=== PATIENT | male | born 1960 | race Hispanic/Latino ===

== ENCOUNTER → 2018-01-23 | Emergency (ER) | payer MEDICAID ==
[~2018-01-23] VITALS: Ht 172.7 cm; Wt 91.6 kg
[~2018-01-23] MED LIST: AUGMENTIN250 MG/5 M PO; LANTUS100 UNITS/ SUB-Q
== END ==
LOC: ED 06:55
DX: J36 Peritonsillar abscess (principal); E11.9 Type 2 diabetes mellitus without complications
CPT/HCPCS: 80053; 81001; 85025; 96361; 96372; 96374; 99283; J0696; J1815; J7030

== ENCOUNTER 2023-07-11 06:15 | Day surgery (SDC) | payer BC ==
[2023-07-09 10:19] VITALS: BP 129/91
[~2023-07-11] VITALS: Ht 172.7 cm; Wt 89.5 kg
[~2023-07-11 06:15] MED LIST changes: +BRAIN MIGHT-DH1 EACH PO; +COZAAR25 MG PO; +LIPITOR40 MG PO; +MULTI COMPLETE1 EACH PO; +NAPROXEN250 MG PO; +OSTERA TABLET1 EACH PO; +OZEMPIC0.25 MG/02 SQ
[2023-07-11 06:23] VITALS: BP 135/76
--- NOTE | 2023-07-11 07:22 | NUR ---
DS ROUNDS. PT NOT IN ROOM. UNABLE TO VISIT. PROVIDED PRAYER.
--- NOTE | 2023-07-11 08:04 | NUR ---
07/11/23 0804 Princess Smart PT TO PACU SLEEPING O2 VIA MASK FOGGING NOTED IN MASK
[2023-07-11 08:26] VITALS: BP 140/84
--- NOTE | 2023-07-11 08:54 | OR ---
[facility] [address], [place] [address] Signed DATE OF OPERATION: 07/11/2023 SURGEON: Dimple Fraser MD PREOPERATIVE DIAGNOSES: 1. Screening. 2. Son with Crohn disease plus or minus colonic polyps. 3. Negative colonoscopy in 2008 at age 48 per patient. POSTOPERATIVE DIAGNOSES: 1. 4 mm polyp at 8 cm in rectum. 2. 7 mm pedunculated polyp at 25 cm in the sigmoid colon. 3. Minimal left-sided diverticulosis. 4. Moderate internal hemorrhoids. PROCEDURES: Colonoscopy, snare polypectomy and hot biopsy. ESTIMATED BLOOD LOSS: None. INDICATIONS: Apple is a 62-year-old gentleman, asked to see me for a followup colonoscopy. He said about age 48 he underwent a negative colonoscopy in 2008 back at the [facility]. Of course, those paper charts are no longer available. He has no family history of colon cancer or polyps. He said his son has Crohn disease. He thinks maybe his son had colonic polyps removed. Apple has no lower GI complaints. In the office, I gave him a pamphlet on colonoscopy. We had reviewed the nature of the test along with the risks including, but not limited to gas bloating, crampy abdominal pain, bleeding, perforation requiring surgery, and missed diagnosis. We also reviewed the written instructions for the bowel prep line by line. Interestingly, he ate clear up to 11 a.m. and then did not purchase his laxatives until 5 p.m. Today, he had some thick particulate stool matter that could not completely be suctioned out. In the future he might consider into more bowel prep and using his liquids all day as instructed. Also, he uses daily marijuana and alcohol along with his diabetes. He also has a full round face and heavy neck as well. Consequently, we asked for monitored anesthesia care with propofol infusion. That worked out well. We did need to use some extra propofol. He had expressed understanding and wished to proceed. PROCEDURE IN DETAIL: Electronically Signed By: DIMPLE FRASER MD 07/11/23 0854 PATIENT NAME: APPLE BOOKER OPERATIVE REPORT DATE OF : 56 REPORT #: [id number] PHYSICIAN: DIMPLE FRASER MD PCP: AWILDA ESTEBAN MD REPORT IS CONFIDENTIAL AND NOT TO BE RELEASED WITHOUT AUTHORIZATION [facility] [address], [place] [address] Signed Apple was taken into our endoscopy suite and placed in the left lateral decubitus position. He was given monitored anesthesia care with propofol infusion per our nurse ballet soloist. A digital rectal exam was performed. He had good sphincter tone. There were no external hemorrhoids to any significant degree. There were no masses. The adult colonoscope was introduced, advanced all the way around into the cecum under direct visualization of camera without difficulty. Unfortunately, he had multiple areas of thick particulate stool matter I could not suction through the scope. He will need to do a double bowel prep in the future. I saw just one moderate sized diverticula in the left colon. He may have more, I just probably could not see them because of the prep. We used a hot biopsy forceps to remove the small polyp in the rectum. We used the snare to remove the polyp at 25 cm. That was captured through our scope and into our trap. Once in the rectum, the scope was retroflexed. He does have moderate internal hemorrhoid columns. After this, the gas was suctioned out. The colonoscope removed. Apple tolerated the procedure quite well. RECOMMENDATIONS: I will see Apple back in my office in 7 to 14 days to review his results. He needs to follow the prep instructions in the future or maybe even use a double bowel prep in the future. He will always need monitored anesthesia care. He might consider repeating the colonoscopy in told 24 months given the findings of polyps and the poor bowel prep. Dimple Fraser MD ALB/MODL /[id number] cc: MD Awilda Mitchell MD Copies: DIMPLE FRASER MD, ROBERT D DMD ~ Electronically Signed By: DIMPLE FRASER MD 07/11/23 0854 PATIENT NAME: APPLE BOOKER OPERATIVE REPORT DATE OF : 56 REPORT #: [id number] PHYSICIAN: DIMPLE FRASER MD PCP: AWILDA ESTEBAN MD REPORT IS CONFIDENTIAL AND NOT TO BE RELEASED WITHOUT AUTHORIZATION
--- NOTE | 2023-07-12 15:52 | PATH ---
[facility] [address] [facility] [place], [place] [address] Signed SPECIMEN(S): A COLON POLYP, 8 CM SPECIMEN(S): B SIGMOID POLYP, 25 CM SPECIMEN SOURCE: A. COLON POLYP, 8 CM B. SIGMOID POLYP, 25 CM CLINICAL HISTORY: Screening colonoscopy FINAL PATHOLOGIC DIAGNOSIS: A. Colon polyp, 8 cm: - Tubular adenoma (1 fragment). B. Sigmoid polyp at 25 cm: - Tubular adenoma. JVR:seth MICROSCOPIC EXAMINATION: Histologic sections of all submitted blocks are examined by light microscopy. These findings, together with the gross examination, support the pathologic diagnosis. GROSS DESCRIPTION: A. The specimen, labeled and designated "Alon, colon polyp 8 cm," is received in formalin and consists of one graf soft tissue fragment, 0.2 cm. Entirely submitted in (A1). B. The specimen, labeled and designated "Alon, sigmoid polyp 25 cm," is received in formalin and consists of a polyp a pink-graf soft tissue (0.8 x 0.6 x 0.4 cm). The resection margin is inked blue, and the tissue is quadrisected to reveal pink-graf soft cut surfaces). The specimen is submitted entirely in cassette (B1). VB (under the direct supervision of a pathologist) The Gross Description was prepared using a voice recognition system. The report was reviewed for accuracy; however, sound-alike word errors, addition and/or deletions may occur. If there is any question about this report, please contact Client Services. ADDITIONAL NOTES: Immunohistochemical and/or in situ hybridization studies if performed in this case included appropriate positive controls that reacted as expected. This test was developed and its performance PATIENT NAME: APPLE BOOKER PATHOLOGY DATE OF : 56 REPORT #: [id number] PHYSICIAN: BROCK SINGH PCP: AWILDA ESTEBAN MD REPORT IS CONFIDENTIAL AND NOT TO BE RELEASED WITHOUT AUTHORIZATION [facility] [address] [place], [place] [address] Signed characteristics determined by [facility]. It has not been cleared or approved by the U.S. Food and Drug Administration. The FDA has determined that such clearance or approval is not necessary. This test is used for clinical purposes. It should not be regarded as investigational or for research. [facility] is certified under the Clinical Laboratory Improvement Amendments of 1988 (CLIA) as qualified to perform high complexity clinical laboratory testing. PERFORMING LABORATORY: Technical component was performed by [facility], [address] [place] [id number] (CLIA# [id number]). Professional interpretation was performed by [facility], [address] [place] [id number] (CLIA#: [id number]). Diagnostician: Kirill Ballesteros MD Pathologist Electronically Signed 07/12/2023 Copies: ~ PATIENT NAME: APPLE BOOKER PATHOLOGY DATE OF : 56 REPORT #: [id number] PHYSICIAN: BROCK SINGH PCP: AWILDA ESTEBAN MD REPORT IS CONFIDENTIAL AND NOT TO BE RELEASED WITHOUT AUTHORIZATION
== END 2023-07-11 08:45 | disposition home or self-care (01) ==
LOC: DS 06:15 → OPS 06:15 → DS 07:30 → OPS 08:45
PROVIDERS: ATTEND Colon & Rectal Surgery
PROC: 0DBE8ZZ Excision of Large Intestine, Via Natural or Artificial Opening Endoscopic (ICD-10-PCS; 2023-07-11)
PROC: 0DBP8ZZ Excision of Rectum, Via Natural or Artificial Opening Endoscopic (ICD-10-PCS; principal; 2023-07-11 07:30)
DX: Z12.11 Encounter for screening for malignant neoplasm of colon (principal); D12.5 Benign neoplasm of sigmoid colon; D12.6 Benign neoplasm of colon, unspecified; K62.1 Rectal polyp; K57.30 Diverticulosis of large intestine without perforation or abscess without bleeding; K64.8 Other hemorrhoids; E11.42 Type 2 diabetes mellitus with diabetic polyneuropathy; E78.5 Hyperlipidemia, unspecified; F10.90 Alcohol use, unspecified, uncomplicated; E66.9 Obesity, unspecified; Z88.8 Allergy status to other drugs, medicaments and biological substances; Z68.31 Body mass index [BMI] 31.0-31.9, adult
CPT/HCPCS: 00812; J2001; J2704; J7121